=== PATIENT | male | born 1940 | race Caucasian/White ===

== ENCOUNTER 2018-12-26 10:22 | Inpatient (IN) | payer MEDICARE ==
[~2018-12-26] VITALS: Ht 175.3 cm; Wt 72.6 kg
[2018-12-26] MEDS ORDERED: PIPERACILLIN /TAZOBACTAM 3.375 G VIAL IV ONE (10:48)
[2018-12-26 10:56] LABS: BASOPHILS % (AUTO) 0.2 % (0.0-2.0); EOSINOPHILS % (AUTO) 0.1 % (0.0-6.0); HEMATOCRIT 44 % (39-51); HEMOGLOBIN 14.6 g/dL (13.5-17.5); LYMPHOCYTES # (AUTO) 0.4 /CMM (0.8-4.8); LYMPHOCYTES % (AUTO) 2.4 % (20.0-44.0); MEAN CORPUSCULAR HGB CONC 33 g/dl (31.0-36.0); MEAN CORPUSCULAR VOLUME 95 fL (80-96); MONOCYTES # (AUTO) 0.5 /CMM (0.1-1.30); MONOCYTES % (AUTO) 2.9 % (2.0-12.0); NEUTROPHILS # (AUTO) 16.9 /CMM (1.8-8.9); NEUTROPHILS % (AUTO) 94.4 % (43.0-81.0); PLATELET COUNT (AUTO) 196 /CMM (150-450); RED BLOOD CELL COUNT(AUTO) 4.66 MIL/uL (4.5-6.0); WHITE BLOOD COUNT (AUTO) 17.8 K/uL (4.3-11.0)
[2018-12-26] MEDS ORDERED: IV NS 0.9% 1,000 ML BAG IV ONE (11:00)
[2018-12-26] MEDS ORDERED: PIPERACILLIN /TAZOBACTAM 3.375 G in IV D5W 50 ML IV ONE (11:00)
[2018-12-26] MEDS ORDERED: VANCOMYCIN 1 GM in IV D5W 250 ML IV ONE (11:00)
--- NOTE | 2018-12-26 11:00 | NUR ---
PATIENT [id number], FROM THE STREET, ALTERED MENTAL STATUS, BS 45, GLUCOGEL GIVEN BY EMS. ON ROOM AIR, BREATHING EVENLY AND UNLABORED. CONNECTED TO THE MONITOR AND PULSE OX. KEPT COMFORTABLE, WILL CONTINUE TO MONITOR ACCORDINGLY.
[2018-12-26 11:11] LABS: ALANINE AMINOTRANSFERASE 17 U/L (12-78); ALKALINE PHOSPHATASE 96 U/L (46-116); ASPARTATE AMINOTRANSFERASE 50 U/L (15-37); BILIRUBIN,DIRECT 0.2 mg/dL (0.0-0.2); BILIRUBIN,TOTAL 0.7 mg/dL (0.2-1.0); CALCIUM, SERUM 9.2 mg/dL (8.5-10.1); CARBON DIOXIDE 23 mmol/L (21-32); CHLORIDE 93 mmol/L (98-107); CREATININE 4.3 mg/dL (0.6-1.3); GLUCOSE 102 mg/dL (74-106); SODIUM SERUM 126 mmol/L (136-145); TOTAL PROTEIN, SERUM 9.2 g/dL (6.4-8.2); UREA NITROGEN, BLOOD 56 mg/dL (7-18)
[2018-12-26 11:17] LABS: POTASSIUM 6.2 mmol/L (3.5-5.1)
[2018-12-26 11:18] LABS: PHOSPHORUS 2.1 mg/dL (2.5-4.9)
[2018-12-26 11:22] LABS: APPEARANCE,URINE Clear (CLEAR); BILIRUBIN,URINE Negative (NEGATIVE); BLOOD, URINE Large Ery/uL (NEGATIVE); COLOR,URINE Yellow (YELLOW); KETONES,URINE Negative (NEGATIVE); LEUKOCYTE ESTERASE ,URINE Negative (NEGATIVE); NITRITE, URINE Negative (NEGATIVE); PH,URINE 6.5 (5.0-8.0); PROTEIN,URINE 100 mg/dl (NEGATIVE); UGLUCOSE Negative (NEGATIVE); UROBILINOGEN,URINE 0.2 EU/dL (0.2)
[2018-12-26] MEDS ORDERED: ALBUTEROL FS 2.5 MG/3 ML VIAL.NEB NEB ONE (11:30)
[2018-12-26] MEDS ORDERED: SODIUM POLYSTYRENE SULFONATE 15 G/60 ML BOTTLE PO ONE (11:30)
[2018-12-26] MEDS ORDERED: DEXTROSE 50%-WATER 50 ML DISP.SYRIN IV ONE (11:30)
[2018-12-26] MEDS ORDERED: Calcium Gluconate 1GM/10ML 4.65 MEQ in IV NS 0.9% 50 ML IV ONE (11:30)
[2018-12-26] MEDS ORDERED: INSULIN REGULAR, HUMAN 100 UNIT/ML 10 ML VIAL IV ONE (11:30)
[2018-12-26 11:37] LABS: BACTERIA,URINE Few /HPF (None Seen); RBC,URINE TOO NUMEROUS TO COUN /HPF (0-2); SQUAMOUS EPITHELIAL CELL,UR Few /HPF (None Seen); WBC,URINE 0-2 /HPF (0-3)
[2018-12-26] MEDS ORDERED: SODIUM POLYSTYRENE SULFONATE 15 G/60 ML BOTTLE ONE (11:41)
[2018-12-26] MEDS ORDERED: Calcium Gluconate 0.465 MEQ/ML VIAL IV ONE (11:41)
[2018-12-26] MEDS ORDERED: DEXTROSE 50%-WATER 50 ML DISP.SYRIN ONE (11:42)
[2018-12-26] MEDS ORDERED: INSULIN REGULAR, HUMAN 100 UNIT/ML 10 ML VIAL ONE (11:42)
[2018-12-26] MEDS ORDERED: CALCIUM CHLORIDE 1,000 MG/10 ML DISP.SYRIN ONE (11:45)
[2018-12-26] MEDS ORDERED: CARV6.252 PO (11:53)
[2018-12-26] MEDS ORDERED: WARF3TAB29 PO (11:53)
[2018-12-26] MEDS ORDERED: ALBUTEROL FS 2.5 MG/3 ML VIAL.NEB ONE (12:23)
[2018-12-26 13:03] LABS: CALCIUM, SERUM 7.9 mg/dL (8.5-10.1); CARBON DIOXIDE 16 mmol/L (21-32); CHLORIDE 102 mmol/L (98-107); CREATININE 4.1 mg/dL (0.6-1.3); GLUCOSE 64 mg/dL (74-106); POTASSIUM 4.2 mmol/L (3.5-5.1); SODIUM SERUM 131 mmol/L (136-145); UREA NITROGEN, BLOOD 53 mg/dL (7-18)
--- NOTE | 2018-12-26 13:20 | NUR ---
LUIS 115-1
--- NOTE | 2018-12-26 13:55 | NUR ---
report givn to Luiza AVILA for rui.
[2018-12-26 14:35] VITALS: BP 112/68
--- NOTE | 2018-12-26 14:40 | NUR ---
KENNEL MANAGER NOTE: RECEIVED PATIENT IN ROOM 115-1, TRANSPORTED VIA GURNEY BY 1 SAMPLE ROOM SUPERVISOR AND 1 TRANSPORTER. PATIENT WAS LETHARGIC UPON ADMISSION TO THE UNIT. ABLE TO SPONTANEOUSLY OPEN HIS EYES, VERBALLY RESPONSIVE AND HAS LIMITED INFORMATION UPON INTERVIEW. REASPIRATION EVEN AND UNLABORED SATURATING 98% WITH O2 2L/MIN VIA NC. HOB ELEVATED. COMPLETE BODY ASSESSMENT DONE. TOOK PICTURES OF THE PATIENT'S (B) LOWER EXTREMITY AND (B) FEET AND FILED IT ON THE PATIENT'S CHART. FEBRILE. ORAL TEMP 101.0 F. COLD BED BATH WAS PROVIDED. PATIENT DENIED ANY PAIN. ABLE TO MOVE (B) UPPER EXTREMITY AND (L) LOWER EXTREMITY, BUT THE (R) LOWER EXTREMITY PATIENT HAD A HARD TIME MOVING IT. (R) FOREARM AND (L) AC IV SITE NOTED PATENT AND INTACT WITH GOOD BLOOD RETURN. VITAL SIGN TAKEN. CHARGE NURSE NEELAM INFORMED DR. ZELAYA REGARDING THE PATIENT'S ADMISSION TO THE UNIT FOR THE ADMITTING ORDERS. BED ALARMED AND LOCKED AT ALL TIMES. CALL LIGHT WITHIN REACH. AWAITING FOR MD'S ADMISSION ORDERS.
--- NOTE | 2018-12-26 14:54 | NUR ---
wheeled patient via gurney accompanied by RN and emt in no distress. Luiza RN at bedside to assume care.
--- NOTE | 2018-12-26 15:40 | NUR ---
RN NOTE: CALLED AND PAGED DR. TIFFANIE ZELAYA [facility]IA [facility] EXCHANGE FOR ADMITTING ORDERS AND SPOKE WITH LIZZY. AWAITING FOR MD'S RESPONSE.
[2018-12-26 16:00] VITALS: BP 100/59
[2018-12-26] MEDS ORDERED: MAG HYDROX/AL HYDROX/SIMETH 30 ML UDC PO PRN (16:00)
[2018-12-26] MEDS ORDERED: MAGNESIUM HYDROXIDE 30 ML UDC PO PRN (16:00)
[2018-12-26] MEDS ORDERED: CEFTRIAXONE 2 G in IV D5W 100 ML IV SCH (16:00)
[2018-12-26] MEDS ORDERED: ZOLPIDEM TARTRATE 5 MG TABLET PO PRN (16:00)
[2018-12-26] MEDS ORDERED: ONDANSETRON HCL/PF 4 MG/2 ML VIAL IVP PRN (16:00)
[2018-12-26] MEDS ORDERED: ACETAMINOPHEN 325 MG TABLET PO PRN (16:00)
[2018-12-26] MEDS ORDERED: Z GUARD REMEDY 2 OZ OINT TP PRN (16:00)
--- NOTE | 2018-12-26 16:05 | NUR ---
RN NOTE: CALLED AND SPOKE WITH LIZZY FROM [facility] EXCHANGE TO FOLLOW-UP WITH THE ADMISSION ORDERS FROM DR. Sonia ZELAYA. AWAITING FOR MD ORDERS.
--- NOTE | 2018-12-26 16:08 | NUR ---
RN NOTE: ADMITTING ORDERS RECEIVED FROM DR. Sonia ZELAYA.
[2018-12-26] MEDS ORDERED: FEE PK DOSING 1 MIN EA MC ONE (16:17)
[2018-12-26] MEDS: IV D5/0.45 NACL 1,000 ML IV PRN (16:27)
[2018-12-26] MEDS ORDERED: VANCOMYCIN HCL 0.75 GM in IV D5W 250 ML IV SCH (16:30)
[2018-12-26] MEDS: CEFEPIME 1 GM in IV D5W 50 ML IV SCH (17:25)
[2018-12-26] MEDS: CLINDAMYCIN 900 MG in IV D5W 50 ML IV SCH (17:49)
--- NOTE | 2018-12-26 19:45 | NUR ---
RN NOTE: BEDSIDE REPORT WAS GIVEN TO PM SHIFT NURSE FOR CONTINUITY OF CARE. PATIENT'S LATEST TEMP WAS 99.5F ENDORSED TO PM SHIFT NURSE TO MONITOR THE PATIENT'S TEMPERATURE. PATIENT'S MENTAL STATUS WAS ON AND OFF AT THIS TIME. PATIENT ATE HIS DINNER MEAL 50% AND LOWER DENTURE STILL WITH THE PATIENT. NO SWALLOWING ISSUES NOTED.
[2018-12-26 20:00] VITALS: BP 90/57
[2018-12-26] MEDS: HEPARIN SODIUM, PORCINE 5000 UNITS/1 ML VIAL SQ SCH (22:18)
[2018-12-27] VITALS: BP 95/58
[2018-12-27] MEDS: CLINDAMYCIN 900 MG in IV D5W 50 ML IV SCH ×3 (01:50→18:21)
[2018-12-27 04:00] VITALS: BP 101/52
[2018-12-27] MEDS: IV D5/0.45 NACL 1,000 ML IV PRN ×2 (07:24→17:27)
[2018-12-27 07:36] LABS: BASOPHILS % (AUTO) 0.2 % (0.0-2.0); EOSINOPHILS % (AUTO) 0.1 % (0.0-6.0); HEMATOCRIT 33 % (39-51); LYMPHOCYTES # (AUTO) 0.7 /CMM (0.8-4.8); MEAN CORPUSCULAR HGB CONC 33 g/dl (31.0-36.0); MEAN CORPUSCULAR VOLUME 93 fL (80-96); MONOCYTES # (AUTO) 1.2 /CMM (0.1-1.30); MONOCYTES % (AUTO) 8.6 % (2.0-12.0); NEUTROPHILS # (AUTO) 12.6 /CMM (1.8-8.9); NEUTROPHILS % (AUTO) 86.1 % (43.0-81.0); PLATELET COUNT (AUTO) 151 /CMM (150-450); RED BLOOD CELL COUNT(AUTO) 3.57 MIL/uL (4.5-6.0); WHITE BLOOD COUNT (AUTO) 14.6 K/uL (4.3-11.0)
[2018-12-27 08:00] VITALS: BP 93/62
--- NOTE | 2018-12-27 08:00 | NUR ---
TD/RN AM SHIFT INITIAL NOTES RECEIVED PT ASLEEP IN BED, EASILY AROUSED, PT A/O X 3, PT DENIES ANY SYMPTOMS. PT ON 2L O2 VIA N/C SATURATING @ 95%, LUNG SOUNDS DIMINISHED, RESPIRATIONS EVEN & UNLABORED. ON TELE MONITORING WITH CONTROLLED A-FIB, HR 88. WITH ON GOING IV INFUSION OF D5,1/2NS @ 100CC/HR, IV SITES PATENT WITH NO S/S OF INFECTION. PT NOTED WITH REDDENED SWOLLEN LOWER BILATERAL EXTREMITIES (CELLULITIS) TO BE SEEN BY WOUND NURSE TODAY. PT IS COMFORTABLE, SCHEDULED AM MEDS TO BE GIVEN. CL WITHIN REACHED AND SAFETY MAINTAINED. ON GOING MONITORING.
[2018-12-27 08:02] LABS: ALANINE AMINOTRANSFERASE 17 U/L (12-78); ALBUMIN 1.9 g/dL (3.4-5.0); ALKALINE PHOSPHATASE 72 U/L (46-116); ASPARTATE AMINOTRANSFERASE 47 U/L (15-37); BILIRUBIN,TOTAL 0.3 mg/dL (0.2-1.0); CALCIUM, SERUM 7.3 mg/dL (8.5-10.1); CARBON DIOXIDE 24 mmol/L (21-32); CHLORIDE 99 mmol/L (98-107); CREATININE 3.8 mg/dL (0.6-1.3); GLUCOSE 100 mg/dL (74-106); PHOSPHORUS 4.2 mg/dL (2.5-4.9); POTASSIUM 3.7 mmol/L (3.5-5.1); SODIUM SERUM 133 mmol/L (136-145); TOTAL PROTEIN, SERUM 6.3 g/dL (6.4-8.2); UREA NITROGEN, BLOOD 57 mg/dL (7-18)
[2018-12-27 08:11] LABS: CHOLESTEROL 94 mg/dL (<200); CREATINE KINASE, TOTAL 486 U/L (39-308); HDL CHOLESTEROL 37 mg/dL (40-60); LDL 33 mg/dL (0-99); THYROID STIMULATING HORMONE 1.608 uIU/mL (0.358-3.74); TRIGLYCERIDES 71 mg/dL (30-150)
[2018-12-27] MEDS: CARVEDILOL 6.25 MG TABLET PO SCH ×2 (08:17→17:27)
[2018-12-27] MEDS: PANTOPRAZOLE 40 MG TABLET.DR PO SCH (08:17)
[2018-12-27] MEDS: HEPARIN SODIUM, PORCINE 5000 UNITS/1 ML VIAL SQ SCH ×2 (08:20→21:27)
[2018-12-27] MEDS: LACTOBACILLUS RHAMNOSUS GG 1 EACH CAP.SPRINK PO SCH ×2 (09:00→17:27)
--- NOTE | 2018-12-27 09:09 | NUR ---
WOUND CARE CONSULT: PT PRESENTS WITH REDNESS, SWELLING AND DISCOLORATION TO RT LOWER LEG AND FOOT WITH TENDERNESS AND WARMTH, PRESENT ON ADMISSION. LEFT FOOT HAS THICKENED SKIN BUT NO TENDERNESS. RECOMMEND DPM CONSULT. RECOMMENDATIONS MADE FOR SKIN PROTECTION. DISCUSSED WITH NURSING STAFF. WILL SEE PRN. JOHNSON IN AGREEMENT WITH PLAN OF CARE. DR SERRANO NOTIFIED OF DPM CONSULT REQUEST. WILL SEE PRLeonidas. Addendum: 12/27/18 at 0913 by GILSON RODRIGUEZ WNDNU Amended: Links added.
[2018-12-27 12:00] VITALS: BP 93/70
[2018-12-27 14:48] LABS: CREATININE, URINE 76.8 MG/DL (30.0-125.0); URINE TOTAL PROTEIN 83.5 mg/dL (0-11.9)
--- NOTE | 2018-12-27 15:00 | NUR ---
TD/GIRL FRIDAY CONSULT - DR. CAMERON PT SEEN & EXAMINED BY DR. CAMERON, NO NEW ORDER RECEIVED AT THIS TIME.
[2018-12-27 16:00] VITALS: BP 113/68
[2018-12-27 16:23] LABS: APPEARANCE,URINE Slightly Cloudy (CLEAR); BILIRUBIN,URINE Negative (NEGATIVE); BLOOD, URINE Moderate Ery/uL (NEGATIVE); COLOR,URINE Yellow (YELLOW); KETONES,URINE Negative (NEGATIVE); LEUKOCYTE ESTERASE ,URINE Negative (NEGATIVE); NITRITE, URINE Negative (NEGATIVE); PH,URINE 5.5 (5.0-8.0); PROTEIN,URINE 30 mg/dl (NEGATIVE); UGLUCOSE Negative (NEGATIVE); UROBILINOGEN,URINE 0.2 EU/dL (0.2)
[2018-12-27 16:33] LABS: BACTERIA,URINE Few /HPF (None Seen); SQUAMOUS EPITHELIAL CELL,UR Few /HPF (None Seen); WBC,URINE 0-2 /HPF (0-3)
[2018-12-27 16:56] LABS: EOSINOPHIL,URINE None Seen
[2018-12-27] MEDS: CEFEPIME 1 GM in IV D5W 50 ML IV SCH (17:27)
--- NOTE | 2018-12-27 19:30 | NUR ---
TD/RN AM SHIFT END NOTES NO ACUTE CHANGE OF CONDITION NOTED DURING THE SHIFT, ALL NEEDS MET. PT ENDORSED TO PM NURSE TO CONTINUE CARE. CL WITHIN REACHED AND SAFETY MAINTAINED.
[2018-12-27 20:00] VITALS: BP 102/58
[2018-12-27] MEDS: MUPIROCIN OINT 2% 22 GM TUBE SCH (21:27)
--- NOTE | 2018-12-27 21:45 | NUR ---
PT COMPLAINING THAT LEFT LEG IS GETTING MORE TENDER AND LOOKS DIFFERENT AND IS STARTING TO GET DISCOLORED.
[2018-12-27] MEDS ORDERED: VANCOMYCIN HCL 0.75 GM in IV D5W 250 ML IV SCH (23:00)
[2018-12-28] VITALS (7 sets, daily range): BP systolic 90–123; BP diastolic 54–76
[2018-12-28] MEDS: CLINDAMYCIN 900 MG in IV D5W 50 ML IV SCH ×3 (01:21→17:38)
[2018-12-28] MEDS: HYDROCODONE/APAP 5/325MG 1 EACH TABLET PO PRN ×2 (03:42→11:33)
[2018-12-28] MEDS: IV D5/0.45 NACL 1,000 ML IV PRN (05:05)
[2018-12-28 06:53] LABS: BASOPHILS % (AUTO) 0.2 % (0.0-2.0); EOSINOPHILS % (AUTO) 1.1 % (0.0-6.0); HEMATOCRIT 29 % (39-51); HEMOGLOBIN 9.7 g/dL (13.5-17.5); LYMPHOCYTES # (AUTO) 0.6 /CMM (0.8-4.8); LYMPHOCYTES % (AUTO) 5.2 % (20.0-44.0); MEAN CORPUSCULAR HGB CONC 34 g/dl (31.0-36.0); MEAN CORPUSCULAR VOLUME 92 fL (80-96); MONOCYTES # (AUTO) 0.8 /CMM (0.1-1.30); MONOCYTES % (AUTO) 6.7 % (2.0-12.0); NEUTROPHILS # (AUTO) 9.9 /CMM (1.8-8.9); NEUTROPHILS % (AUTO) 86.8 % (43.0-81.0); PLATELET COUNT (AUTO) 149 /CMM (150-450); RED BLOOD CELL COUNT(AUTO) 3.14 MIL/uL (4.5-6.0); WHITE BLOOD COUNT (AUTO) 11.4 K/uL (4.3-11.0)
[2018-12-28 07:03] LABS: ALANINE AMINOTRANSFERASE 20 U/L (12-78); ALBUMIN 1.7 g/dL (3.4-5.0); ALKALINE PHOSPHATASE 81 U/L (46-116); ASPARTATE AMINOTRANSFERASE 44 U/L (15-37); BILIRUBIN,TOTAL 0.3 mg/dL (0.2-1.0); CALCIUM, SERUM 7.1 mg/dL (8.5-10.1); CARBON DIOXIDE 19 mmol/L (21-32); CHLORIDE 95 mmol/L (98-107); CREATININE 3.3 mg/dL (0.6-1.3); GLUCOSE 112 mg/dL (74-106); MAGNESIUM 1.7 mg/dL (1.8-2.4); PHOSPHORUS 2.8 mg/dL (2.5-4.9); POTASSIUM 3.1 mmol/L (3.5-5.1); SODIUM SERUM 127 mmol/L (136-145); TOTAL PROTEIN, SERUM 5.8 g/dL (6.4-8.2); UREA NITROGEN, BLOOD 54 mg/dL (7-18)
--- NOTE | 2018-12-28 08:00 | NUR ---
TD/[place] AM SHIFT INITIAL NOTES RECEIVED PT AWAKE IN BED, PT A/O X 3, PT DENIES ANY SYMPTOMS. PT ON 2L O2 VIA N/C SATURATING @ 97%, LUNG SOUNDS DIMINISHED, RESPIRATIONS EVEN & UNLABORED. ON TELE MONITORING WITH CONTROLLED A-FIB, HR 88. WITH ON GOING IV INFUSION OF D5,1/2NS @ 100CC/HR, IV SITES PATENT WITH NO S/S OF INFECTION. PT LEFT LEG REDDENED SWOLLEN ELEVATED ON PILLOWS. CONDOM CATHETER INTACT WITH YELLOW URINE OUTPUT. PT IS COMFORTABLE, SCHEDULED AM MEDS TO BE GIVEN. CL WITHIN REACHED, SAFETY MAINTAINED AND ISOLATION OBSERVED. ON GOING MONITORING. Addendum: 12/28/18 at 1323 by TAMEKA LEWIS RN ERROR IN NOTING: RIGHT LEG WAS ELEVATED ON PILLOWS.
[2018-12-28] MEDS: HEPARIN SODIUM, PORCINE 5000 UNITS/1 ML VIAL SQ SCH ×2 (08:10→20:45)
[2018-12-28] MEDS: PANTOPRAZOLE 40 MG TABLET.DR PO SCH (08:11)
[2018-12-28] MEDS: MUPIROCIN OINT 2% 22 GM TUBE SCH ×2 (08:11→21:00)
[2018-12-28] MEDS: LACTOBACILLUS RHAMNOSUS GG 1 EACH CAP.SPRINK PO SCH ×2 (08:12→16:11)
[2018-12-28] MEDS: CARVEDILOL 6.25 MG TABLET PO SCH ×2 (08:12→16:12)
[2018-12-28] MEDS ORDERED: POTASSIUM CHLORIDE 20 MEQ TAB.PRT.SR PO ONE (08:30)
[2018-12-28] MEDS: IV NS 0.9% 1,000 ML IV PRN ×2 (09:09→21:58)
[2018-12-28 10:04] LABS: CREATINE KINASE, TOTAL 212 U/L (39-308)
--- NOTE | 2018-12-28 11:20 | NUR ---
Social service consult requested by Dr. Alvarez for homelessness. Pt. is a 78 year old male who was admitted to [facility] for Hyperkalemia. Pt. was brought to [facility] via rescue ambulance after being found on the street with some altered mental status. Per ER physician Dr. Cruz, has a history of reported muscle infection of his right lower extremity and unclear acuity. Per EMS, he was found to have a glucose level of 45 and was given oral glucose supplementation en route to the hospital. SW met with the pt. bedside. Pt. is alert and oriented x 4. Pt appears disheveled. Pt. states he is homeless and has been for " a while." Pt. states he has lived in [place] for 40 years. Pt. receives $1050 in SSI per month. Pt. is willing to go to SNF if deemed appropriate. manager behavior Aparna is aware regarding pt. willing to go to a SNF.
--- NOTE | 2018-12-28 11:30 | NUR ---
TELE1/RN ROUNDS - DR. AKHTAR UPDATED PT'S CONDITION, PT SEEN & EXAMINED BY DR. AKHTAR. NO NEW ORDER RECEIVED. MONITORING CONTINUED.
[2018-12-28 12:07] LABS: PTH, INTACT 210 pg/mL (15-65)
--- NOTE | 2018-12-28 13:30 | NUR ---
TELE1/RN ROUNDS - DR. BARKLEY PT SEEN & EXAMINED BY DR. BARKLEY. WITH VERBAL ORDER RECEIVED TO SCRUBS OFF EXTRA SKIN OF PT'S LOWER LEGS. ON THE RIGHT FOOT AFTER SCRUBBING AND CLEANSING, PAT DRY, APPLY XEROFORM THEN SECURE SITE WRAPPING WITH KERLIX GAUZE AND THE REST OF LEGS TO APPLY LOTION. ORDER NOTED AND CARRIED OUT.
[2018-12-28] MEDS ORDERED: VITAMINS A AND D 56.7 GM TUBE TP PRN ×2 (16:00→16:30)
[2018-12-28] MEDS: CEFEPIME 1 GM in IV D5W 50 ML IV SCH (16:12)
--- NOTE | 2018-12-28 19:15 | NUR ---
TELE1/RN AM SHIFT END NOTES NO ACUTE CHANGE OF CONDITION NOTED DURING THE SHIFT, ALL NEEDS MET. PT ENDORSED TO PM NURSE TO CONTINUE CARE. CL WITHIN REACHED,SAFETY MAINTAINED AND ISOLATION OBSERVED.
--- NOTE | 2018-12-28 19:30 | NUR ---
APPAREL DESIGNER NOTE: RECEIVED PT ON BED ALERT AND ORIENTED X3. ABLE TO MAKE NEEDS KNOWN. NO ACUTE DISTRESS NOTED. NO COMPLAINTS OF PAIN OR DISCOMFORT AT THIS TIME. ON 2LPM NASAL CANNULA, NO SOB NOTED. ON TELE MONITOR AFIB CONTROLLED HR 86BPM. IV ON RIGHT FOREARM #20 AND LEFT ANTECUBITAL #18 INTACT AND PATENT, IVF INFUSING WELL. KEPT CLEAN, DRY AND COMFORTABLE. SAFETY AND FALL PRECAUTIONS OBSERVED AND MAINTAINED. WILL CONTINUE TO MONITOR PT.
--- NOTE | 2018-12-28 20:47 | NUR ---
CONTROL ANALYST NOTE: HEPARIN DUE AT 2100 NOT GIVEN. APTT HIGH, CLARIFIED TO MD FAMILY MEDICINE RESIDENT, PER MD HOLD DOSE FOR NOW. NO ACTIVE BLEEDING NOTED. WILL CONTINUE TO MONITOR PT.
[2018-12-29] VITALS: BP 123/69
[2018-12-29] MEDS: CLINDAMYCIN 900 MG in IV D5W 50 ML IV SCH ×3 (03:02→17:37)
[2018-12-29 04:00] VITALS: BP 119/45
[2018-12-29 06:10] LABS: *SPE A/G RATIO 0.6 (0.7-1.7); *SPE ALBUMIN 2.1 g/dL (2.9-4.4); *SPE ALPHA-1-GLOBULIN 0.5 g/dL (0.0-0.4); *SPE ALPHA-2-GLOBULIN 0.9 g/dL (0.4-1.0); *SPE BETA GLOBULIN 0.8 g/dL (0.7-1.3); *SPE GLOBULIN, TOTAL 3.4 g/dL (2.2-3.9); *SPE M-SPIKE Not Observed g/dL (Not Observed); *SPEGAMMA GLOBULIN 1.3 g/dL (0.4-1.8)
--- NOTE | 2018-12-29 06:41 | NUR ---
PARAPROFESSIONAL INTERPRETER NOTE: NO CHANGES NOTED THROUGHOUT THE SHIFT. NO APPARENT DISTRESS NOTED. NO COMPLAINTS OF PAIN OR DISCOMFORT AT THIS TIME. ON 2LPM NASAL CANNULA, BREATHING EVEN AND UNLABORED WITH NORMAL RESPIRATIONS. AFIB CONTROLLED ON TELE MONITOR HR 93 BPM. CONDOM CATH INTACT AND PATENT, DRAINING WELL. KEPT CLEAN, DRY AND COMFORTABLE. SAFETY AND FALL PRECAUTIONS OBSERVED AND MAINTAINED. WILL ENDORSE TO DAY SHIFT RN FOR CONTINUITY OF CARE
--- NOTE | 2018-12-29 07:10 | NUR ---
DRAFTING TECHNICIAN OPENING NOTES RECEIVED PT LYING ON BED,ALERT/ORIENTED X3.ON TELE HR IS 93 WITH CONTROLLED A FIB.ON 2LPM O2 VIA NC CONTINUOUSLY.NO SOB AND ACUTE DISTRESS NOTED.IV LINE IS ON RIGHT FA G20 WITH IV FLUID 0.9%NS @100ML/HR IS RUNNING AND IV LINE IS ON LEFT AC G18,SL.SITE IS CLEAN,DRY AND INTACT.NO INFILTRATION NOTED.SAFETY IS MAINTAINED AT ALL TIMES.CALL LIGHT IS WITHIN REACH.WILL CONTINUE TO MONITOR THE PT CLOSELY.
[2018-12-29 07:44] LABS: BASOPHILS % (AUTO) 0.2 % (0.0-2.0); EOSINOPHILS % (AUTO) 1.4 % (0.0-6.0); HEMATOCRIT 32 % (39-51); HEMOGLOBIN 10.3 g/dL (13.5-17.5); LYMPHOCYTES # (AUTO) 0.5 /CMM (0.8-4.8); LYMPHOCYTES % (AUTO) 4.5 % (20.0-44.0); MEAN CORPUSCULAR HGB CONC 32 g/dl (31.0-36.0); MEAN CORPUSCULAR VOLUME 93 fL (80-96); MONOCYTES % (AUTO) 8.5 % (2.0-12.0); NEUTROPHILS # (AUTO) 10.2 /CMM (1.8-8.9); NEUTROPHILS % (AUTO) 85.4 % (43.0-81.0); PLATELET COUNT (AUTO) 167 /CMM (150-450); RED BLOOD CELL COUNT(AUTO) 3.42 MIL/uL (4.5-6.0); WHITE BLOOD COUNT (AUTO) 11.9 K/uL (4.3-11.0)
[2018-12-29 08:00] VITALS: BP 137/69
[2018-12-29 08:13] LABS: ALANINE AMINOTRANSFERASE 30 U/L (12-78); ALBUMIN 1.8 g/dL (3.4-5.0); ALKALINE PHOSPHATASE 107 U/L (46-116); ASPARTATE AMINOTRANSFERASE 45 U/L (15-37); BILIRUBIN,TOTAL 0.3 mg/dL (0.2-1.0); CALCIUM, SERUM 7.8 mg/dL (8.5-10.1); CARBON DIOXIDE 22 mmol/L (21-32); CHLORIDE 101 mmol/L (98-107); CREATININE 2.6 mg/dL (0.6-1.3); GLUCOSE 95 mg/dL (74-106); MAGNESIUM 1.8 mg/dL (1.8-2.4); PHOSPHORUS 2.4 mg/dL (2.5-4.9); POTASSIUM 3.9 mmol/L (3.5-5.1); SODIUM SERUM 134 mmol/L (136-145); TOTAL PROTEIN, SERUM 6.6 g/dL (6.4-8.2); UREA NITROGEN, BLOOD 46 mg/dL (7-18)
[2018-12-29 08:24] VITALS: BP 137/69
[2018-12-29] MEDS: LACTOBACILLUS RHAMNOSUS GG 1 EACH CAP.SPRINK PO SCH ×2 (08:48→17:37)
[2018-12-29] MEDS: CARVEDILOL 6.25 MG TABLET PO SCH ×2 (08:48→17:38)
[2018-12-29] MEDS: HYDROCODONE/APAP 5/325MG 1 EACH TABLET PO PRN (08:49)
[2018-12-29] MEDS: PANTOPRAZOLE 40 MG TABLET.DR PO SCH (08:52)
[2018-12-29] MEDS: IV NS 0.9% 1,000 ML IV PRN (08:53)
[2018-12-29] MEDS: MUPIROCIN OINT 2% 22 GM TUBE SCH (09:03)
[2018-12-29] MEDS: HEPARIN SODIUM, PORCINE 5000 UNITS/1 ML VIAL SQ SCH (10:47)
--- NOTE | 2018-12-29 10:48 | NUR ---
MS RN NOTES DR.SANTA AKHTAR ORDERED TO DISCONTINUE THE SQ HEPARIN 5000 UNIT APTT IS 77.NEW ORDERS NOTED AND CARRIED OUT.
[2018-12-29] MEDS ORDERED: CLIN900P10 IV (10:55)
[2018-12-29] MEDS ORDERED: CEFE1FRO IV (10:55)
[2018-12-29] MEDS ORDERED: VITA56.7 TP (10:55)
[2018-12-29] MEDS ORDERED: LACT1CAP72 PO (10:55)
[2018-12-29] MEDS ORDERED: LORAZEPAM INJ 2 MG/ML VIAL IM/IV PRN (11:00)
[2018-12-29] MEDS ORDERED: LORAZEPAM 1 MG TABLET PO PRN (11:00)
--- NOTE | 2018-12-29 12:29 | NUR ---
MS RN NOTES PT DISCHARGE REPORT GIVEN TO [place] NICHOLS IN [facility]. PHONE CE=[phone]
--- NOTE | 2018-12-29 13:45 | NUR ---
MS [place] NOTES PT FELL ON THE FLOOR ON THE WAY TO THE RESTROOM,NOTED WITH BRUISE WITH MILD BLEEDING ON LEFT FOREHEAD.NO OTHER COMPLICATIONS NOTED.DR.SANTA AKHTAR ORDERED CT HEAD W/O CONTRAST,IF IT IS NEGATIVE OK TO DISCHARGE.NEW ORDERS NOTED AND CARRIED OUT. Addendum: 12/29/18 at 1747 by MARY LOU PA RN ORDERED PLACE RESTRAINTS ON B/L WRIST.
--- NOTE | 2018-12-29 14:15 | NUR ---
MS RN NOTES RECEIVED NEGATIVE CT HEAD FINDINGS.DR.SANTA AKHTAR ORDERED TO DISCHARGE PT TODAY.
[2018-12-29 16:00] VITALS: BP 128/72
[2018-12-29] MEDS: CEFEPIME 1 GM in IV D5W 50 ML IV SCH (17:00)
[2018-12-29 17:38] VITALS: BP 128/72
--- NOTE | 2018-12-29 19:06 | NUR ---
MS COLLEGE FOOTBALL COACH NOTES PT IS DISCHARGE TO [facility].ALL THE DISCHARGE PAPERWORK GIVEN TO THE EMS.IV LINE IS REMOVED.SKIN ASSESSMENT IS DONE AND WOUND PICTURES HAS DONE.DRESSING IS DONE ON RIGHT LE AND IT IS INTACT.VITAL SIGNS CHECKED AND RECORDED.NO COMPLICATIONS NOTED.DISCHARGE WITH 2LPM O2 VIA NC.NO COMPLICATIONS NOTED.TAKEN BY ARIELLE BY EMS.
== END 2018-12-29 20:07 | DRG 871 ==
LOC: ER 10:27 → TELE-TD 13:33 → TELE1 12-28 11:03 → MEDSG1 12-29 10:15
PROVIDERS: ADMIT Hospitalist; ATTEND Student in an Organized Health Care Education/Training Program
DX: A41.9 Sepsis, unspecified organism (principal); J69.0 Pneumonitis due to inhalation of food and vomit; N17.0 Acute kidney failure with tubular necrosis; E43 Unspecified severe protein-calorie malnutrition; G92 Toxic encephalopathy; L03.115 Cellulitis of right lower limb; E87.2 Acidosis; E87.1 Hypo-osmolality and hyponatremia; L03.116 Cellulitis of left lower limb; M86.9 Osteomyelitis, unspecified; N18.4 Chronic kidney disease, stage 4 (severe); R65.20 Severe sepsis without septic shock; I48.91 Unspecified atrial fibrillation; I12.9 Hypertensive chronic kidney disease with stage 1 through stage 4 chronic kidney disease, or unspecified chronic kidney disease; Z79.01 Long term (current) use of anticoagulants; Z79.899 Other long term (current) drug therapy; E16.2 Hypoglycemia, unspecified; E87.5 Hyperkalemia; L85.3 Xerosis cutis; Z59.0 Homelessness; L81.9 Disorder of pigmentation, unspecified; E87.6 Hypokalemia; I73.9 Peripheral vascular disease, unspecified
CPT/HCPCS: 36415; 70450-TC; 71045-TC; 73590-TC; 80048-TC; 80053-TC; 80061-TC; 80076-TC; 81000-TC; 82550-TC; 82570-TC; 83605-TC; 83735-TC; 83970; 84100-TC; 84155; 84155-TC; 84165; 84300-TC; 84443-TC; 84484-TC; 85025-TC; 85730-TC; 87040-TC; 87081-TC; 87086-TC; 93971-TC; 97110-TC; 97530-TC; A4216; A4349; A6403; G0378; J0610; J0692; J0696; J1644; J1815; J2543; J3370; J3490; J7030; J7040; J7060